=== PATIENT | female | born 1965 | race Caucasian/White ===

== ENCOUNTER 2017-06-02 12:18 | Emergency (ER) | payer MEDICAID ==
[2017-06-02 12:28] VITALS: TEMP 97.8
[2017-06-02] MEDS ORDERED: guaiFENesin 100 mg/5 ml Syrup UD PO STA (12:49)
[2017-06-02] MEDS ORDERED: guaiFENesin 100 mg/5 ml Syrup UD ONE (12:54)
[2017-06-02 13:05] VITALS: BP 132/74; PULSE 60; RESP 20; O2SAT 96
--- NOTE | 2017-06-02 13:07 | C.PDOC ---
History Of Present Illness Patient is a 51 y/o female who presents to the ED with complaints of cough, cold , SOB x 4 days and dizziness x2 days. Patient was prescribed a Zpack by Dr. Shannon but did not take any OTC flu/cold medicine. Denies fever or chills. Patient does not have any sick contact at home and has no other complaints at this time. Time Seen by Provider: 06/02/17 12:43 Chief Complaint (Nursing): Dizziness/Lightheaded History Per: Patient History/Exam Limitations: no limitations Onset/Duration Of Symptoms: Days Current Symptoms Are (Timing): Still Present Associated Symptoms: Cough (dry, nonproductive. ). denies: Fever, Chills Past Medical History Reviewed: Historical Data, Nursing Documentation, Vital Signs Vital Signs: Last Vital Signs Temp 97.8 F 06/02/17 12:25 Pulse 60 06/02/17 12:59 Resp 20 06/02/17 12:59 BP 132/74 06/02/17 12:59 Pulse Ox 96 06/02/17 13:07 - Medical History PMH: HTN, Hypothyroidism Surgical History: Cholecystectomy Family History: States: No Known Family Hx - Social History Hx Alcohol Use: No Hx Substance Use: No - Immunization History Hx Tetanus Toxoid Vaccination: No Hx Influenza Vaccination: No Hx Pneumococcal Vaccination: No Review Of Systems Constitutional: Negative for: Fever, Chills Cardiovascular: Negative for: Chest Pain Respiratory: Positive for: Cough, Other (congestion.). Negative for: Shortness of Breath Gastrointestinal: Negative for: Nausea, Vomiting Physical Exam - Physical Exam Appears: Well, Non-toxic, No Acute Distress Skin: Normal Color, Warm, Dry Head: Atraumatic, Normacephalic Nose: Other (nasal congestion.) Oral Mucosa: Moist Throat: Erythema (mild) Chest: Symmetrical Cardiovascular: Rhythm Regular, No Murmur Respiratory: Normal Breath Sounds, No Rales, No Rhonchi, No Wheezing Gastrointestinal/Abdominal: Soft, No Tenderness Neurological/Psych: Oriented x3, Normal Speech, Normal Cognition ED Course And Treatment O2 Sat by Pulse Oximetry: 96 (Room air) Pulse Ox Interpretation: Normal Medical Decision Making Medical Decision Making: Plan: Robitussin and Motrin administered. mild viral syndrome, non-prod cough, mild throat erythema, no d/c failed outpatient Azithromycin x 3 days No prior OTC flu/cold meds attempted Educated daytime/nighttime symptomatic relief. Disposition Doctor Will See Patient In The: Office Counseled Patient/Family Regarding: Studies Performed, Diagnosis - Disposition Referrals: Tanvi Parker MD [Staff Provider] - Disposition: HOME/ ROUTINE Disposition Time: 13:06 Condition: GOOD Additional Instructions: STOP Azithromycin- does not work for VIRAL bronchitis Dayquil and Nyquil as directed Drink plenty of fluids Avoid family contacts, this is very contagious in the home. Instructions: Viral Syndrome (ED) Forms: TCHO (Ivorian) - Clinical Impression Clinical Impression: Influenza-like illness - Scribe Statement The provider has reviewed the documentation as recorded by the Scribe Flor Rodriguez All medical record entries made by the Scribe were at my direction and personally dictated by me. I have reviewed the chart and agree that the record accurately reflects my personal performance of the history, physical exam, medical decision making, and the department course for this patient. I have also personally directed, reviewed, and agree with the discharge instructions and disposition.
== END 2017-06-02 13:56 | disposition home or self-care (01) ==
LOC: C.ER 12:18
DX: J11.1 Influenza due to unidentified influenza virus with other respiratory manifestations (principal)

== ENCOUNTER 2018-01-31 17:24 | Inpatient (IN) | payer MEDICAID ==
[2018-01-31] MEDS ORDERED: Aspirin 325 mg EC Tablets PO STA (17:46)
[2018-01-31] MEDS ORDERED: Aspirin 325 mg EC Tablets PO ONE (17:52)
[2018-01-31 18:03] LABS: BASO # 0.1 K/uL (0.0-0.2); BASO % 0.7 % (0.0-2.0); EOS # 0.5 K/uL (0.0-0.7); EOS % 6.5 % (0.0-4.0); HEMOGLOBIN 10.9 g/dL (11.0-16.0); LYMPH # 3.1 K/uL (1.0-4.3); LYMPH % 42.6 % (20.0-40.0); MEAN CELL VOLUME 79.7 fL (81.0-99.0); MEAN CORPUSCULAR HEMOGLOBIN 26.4 pg (27.0-31.0); MEAN CORPUSCULAR HGB CONC 33.1 g/dL (33.0-37.0); MEAN PLATELET VOLUME 8.9 fL (7.2-11.7); MONO # 0.5 K/uL (0.0-0.8); MONO % 6.4 % (0.0-10.0); NEUT # 3.2 K/uL (1.8-7.0); NEUT % 43.8 % (50.0-75.0); NRBC % 0.1 % (0.0-2.0); RBC 4.12 Mil/uL (3.80-5.20); RED CELL DISTRIBUTION WIDTH 15.5 % (11.5-14.5); WHITE BLOOD COUNT 7.2 K/uL (4.8-10.8)
--- NOTE | 2018-01-31 18:13 | RAD ---
PROCEDURE: CHEST RADIOGRAPH, 1 VIEW HISTORY: chest pain COMPARISON: None available. FINDINGS: LUNGS: Clear. PLEURA: No pneumothorax or pleural fluid seen. CARDIOVASCULAR: No radiographic findings to suggest acute or significant cardiovascular disease. OSSEOUS STRUCTURES: No significant abnormalities. VISUALIZED UPPER ABDOMEN: Normal. OTHER FINDINGS: None. IMPRESSION: No active disease.
[2018-01-31 18:17] LABS: ALB/GLOB RATIO 0.9 (1.0-2.1); ALT/SGPT 30 U/L (9-52); AST/SGOT 28 U/L (14-36); BLOOD UREA NITROGEN 13 mg/dL (7-17); CALCIUM 9.6 mg/dl (8.6-10.4); GFR AFRICAN-AMERICAN > 60; GFR NON-AFRICAN AMERICAN > 60
[2018-01-31 18:28] LABS: B-TYPE NATRIURETIC PEPTIDE 536 pg/mL (0-900)
--- NOTE | 2018-01-31 18:40 | C.PDOC ---
History Of Present Illness Pt c/o left sided chest pain radiating to LLE Time Seen by Provider: 01/31/18 17:43 Chief Complaint (Nursing): Chest Pain History Per: Patient Onset/Duration Of Symptoms: Hrs (since last night), Waxing/Waning Current Symptoms Are (Timing): Still Present Severity: Moderate Quality: "Pain" Associated Symptoms: Nausea Modifying Factors: Other Indicated Below Alleviating Factors: None Nitro Therapy Administered: 1, Per ED, Complete Relief Additional History Per: Prior Records Past Medical History Reviewed: Historical Data, Nursing Documentation, Vital Signs Vital Signs: Last Vital Signs Temp 98 F 01/31/18 17:28 Pulse 62 01/31/18 18:29 Resp 21 01/31/18 18:29 BP 136/79 01/31/18 18:29 Pulse Ox 96 01/31/18 18:44 - Medical History PMH: HTN, Hypothyroidism Surgical History: Cholecystectomy Family History: States: Unknown Family Hx - Social History Hx Tobacco Use: No Hx Alcohol Use: No Hx Substance Use: No - Immunization History Hx Tetanus Toxoid Vaccination: No Hx Influenza Vaccination: No Hx Pneumococcal Vaccination: No Review Of Systems Except As Marked, All Systems Reviewed And Found Negative. Constitutional: Negative for: Fever, Weakness Cardiovascular: Positive for: Chest Pain Respiratory: Negative for: Hemoptysis Gastrointestinal: Positive for: Nausea. Negative for: Vomiting, Abdominal Pain Skin: Negative for: Rash Neurological: Negative for: Weakness, Numbness Physical Exam - Physical Exam Appears: Non-toxic, No Acute Distress Skin: Normal Color, Warm, Dry, No Rash Head: Atraumatic, Normacephalic Eye(s): bilateral: PERRL, EOMI Neck: Normal ROM, Supple Cardiovascular: Rhythm Regular Respiratory: Normal Breath Sounds, No Accessory Muscle Use Gastrointestinal/Abdominal: Soft, No Tenderness Back: No CVA Tenderness Extremity: Normal ROM, No Calf Tenderness Neurological/Psych: Oriented x3, Normal Motor, Normal Sensation ED Course And Treatment - Laboratory Results Result Diagrams: 01/31/18 17:59 01/31/18 17:59 Lab Interpretation: No Acute Changes ECG: Interpreted By Me, Viewed By Me ECG Rhythm: Sinus Rhythm, L BBB, Nonspecific Changes ECG Interpretation: Abnormal Rate From EC O2 Sat by Pulse Oximetry: 96 Pulse Ox Interpretation: Normal - Radiology CXR: Viewed By Me, Read By Radiologist CXR Interpretation: Yes: No Acute Disease Progress - Interventions Interventions:: Observation, Oxygen - Medications Administered Oral: Aspirin - Data Reviewed Data Reviewed: Lab, Diagnostic imaging, EKG, Old records - Patient Status Patient status: Mostly improved - Critical Care Citical Care: Excluding Proc Time Critical Care Time: 45 minutes - Continuity of Care Discussed patient case with:: Patient, ED Nurse, Covering for PMD Disposition Discussed With : Kulwant Mims Comment: He accepted pt on his service. Doctor Will See Patient In The: Hospital Counseled Patient/Family Regarding: Studies Performed, Diagnosis - Disposition Disposition: HOSPITALIZED Disposition Time: 19:17 Condition: FAIR - Clinical Impression Clinical Impression: Chest pain
[2018-01-31 20:22] LABS: INR 1.1
[2018-02-01 00:55] LABS: CK-MB 1.64 ng/mL (0.0-3.38)
[2018-02-01] MEDS: Levothyroxine 75 MCG TAB PO SCH (05:52)
--- NOTE | 2018-02-01 05:55 | CP.PCM.HP ---
History of Present Illness - History of Present Illness History of Present Illness: CC: chest pain HPI: 52 year old female with PMH significat for HTN, Hypothyroidism came in for c/o ches pain radiating to left side Present on Admission - Present on Admission Any Indicators Present on Admission: No Past Patient History - Infectious Disease Hx of Infectious Diseases: None - Past Social History Smoking Status: Never Smoked - CARDIAC Hx Hypertension: Yes - ENDOCRINE/METABOLIC Hx Hypothyroidism: Yes - PSYCHIATRIC Hx Substance Use: No - SURGICAL HISTORY Hx Cholecystectomy: Yes - ANESTHESIA Hx Anesthesia: Yes Hx Anesthesia Reactions: No Hx Malignant Hyperthermia: No Meds Allergies/Adverse Reactions: Allergies Allergy/AdvReac Type Severity Reaction Status Date / Time No Known Allergies Allergy Verified 01/31/18 17:45 Results - Vital Signs Recent Vital Signs: Last Vital Signs Temp 97.5 F L 02/01/18 04:53 Pulse 58 L 02/01/18 04:53 Resp 18 02/01/18 04:53 BP 145/87 02/01/18 04:53 Pulse Ox 98 02/01/18 04:53 - Labs Result Diagrams: 01/31/18 17:59 01/31/18 17:59 Labs: Laboratory Results - last 24 hr 01/31/18 01/31/18 01/31/18 17:59 17:59 17:59 WBC 7.2 RBC 4.12 Hgb 10.9 L Hct 32.9 L MCV 79.7 L MCH 26.4 L MCHC 33.1 RDW 15.5 H Plt Count 265 MPV 8.9 Neut % (Auto) 43.8 L Lymph % (Auto) 42.6 H Meigs % (Auto) 6.4 Eos % (Auto) 6.5 H Baso % (Auto) 0.7 Neut # (Auto) 3.2 Lymph # (Auto) 3.1 Meigs # (Auto) 0.5 Eos # (Auto) 0.5 Baso # (Auto) 0.1 PT 12.0 INR 1.1 APTT 33 Sodium 140 Potassium 4.0 Chloride 104 Carbon Dioxide 25 Anion Gap 14 BUN 13 Creatinine 0.6 L Est GFR ( Amer) > 60 Est GFR (Non-Af Amer) > 60 Random Glucose 96 Calcium 9.6 Total Bilirubin 0.6 AST 28 ALT 30 Alkaline Phosphatase 78 Total Creatine Kinase CK-MB (Mass) Troponin I < 0.0120 NT-Pro-B Natriuret Pep 536 Total Protein 8.5 H Albumin 4.0 Globulin 4.5 H Albumin/Globulin Ratio 0.9 L 02/01/18 00:23 WBC RBC Hgb Hct MCV MCH MCHC RDW Plt Count MPV Neut % (Auto) Lymph % (Auto) Meigs % (Auto) Eos % (Auto) Baso % (Auto) Neut # (Auto) Lymph # (Auto) Meigs # (Auto) Eos # (Auto) Baso # (Auto) PT INR APTT Sodium Potassium Chloride Carbon Dioxide Anion Gap BUN Creatinine Est GFR ( Amer) Est GFR (Non-Af Amer) Random Glucose Calcium Total Bilirubin AST ALT Alkaline Phosphatase Total Creatine Kinase 179 H CK-MB (Mass) 1.64 Troponin I < 0.0120 NT-Pro-B Natriuret Pep Total Protein Albumin Globulin Albumin/Globulin Ratio
[2018-02-01 08:35] VITALS: RESP 20
[2018-02-01] MEDS: Enoxaparin 40 mg Syringe SC SCH (09:28)
[2018-02-01] MEDS ORDERED: Levothyroxine 75 MCG TAB PO SCH (10:00)
--- NOTE | 2018-02-01 12:09 | CARD ---
APPROVED REPORT EXAM: Two-dimensional and M-mode echocardiogram with Doppler and color Doppler. Other Information Quality : GoodRhythm : INDICATION Chest Pain 2D DIMENSIONS IVSd1.3 (0.7-1.1cm)LVDd4.7 (3.9-5.9cm) PWd1.3 (0.7-1.1cm)LVDs3.4 (2.5-4.0cm) FS (%) 26.8 %LVEF (%)52.3 (>50%) M-Mode DIMENSIONS Left Atrium (MM)4.30 (2.5-4.0cm)Aortic Root3.55 (2.2-3.7cm) Aortic Cusp Exc.1.84 (1.5-2.0cm) Mitral Valve MV E Qipwtofe18.9cm/sMV A Rxwdsytr28.0cm/sMV [id number] E/A ratio0.8MVA (PHT)2.14cm2 TDI E/Lateral E'0.0E/Medial E'0.0 Tricuspid Valve TR Peak Cugvirqo843jd/sTR Peak Gr.[id number] LEFT VENTRICLE The left ventricle is normal size. There is borderline concentric left ventricular hypertrophy. The left ventricular systolic function is normal. The left ventricular ejection fraction is within the normal range. There is normal LV segmental wall motion. Transmitral Doppler flow pattern is Grade I-abnormal relaxation pattern. Normal left atrial pressure. RIGHT VENTRICLE The right ventricle is normal size. The right ventricular systolic function is normal. ATRIA The left atrium is mildly to moderately dilated. Atrial index not available The right atrium size is normal. AORTIC VALVE The aortic valve is normal in structure. No aortic regurgitation is present. There is no aortic valvular stenosis. MITRAL VALVE The mitral valve is normal in structure. Mild mitral regurgitation. TRICUSPID VALVE The tricuspid valve is normal in structure. There is trace to mild tricuspid regurgitation. Right ventricular systolic pressure is estimated at less than 30 mmHg. PULMONIC VALVE The pulmonary valve is normal in structure. GREAT VESSELS The aortic root is normal in size. The IVC is normal in size and collapses >50% with inspiration. PERICARDIAL EFFUSION There is no pericardial effusion. <Conclusion> There is borderline concentric left ventricular hypertrophy. The left ventricular systolic function is normal. There is no gross LV segmental wall motion abnormality. Transmitral Doppler flow pattern is Grade I-abnormal relaxation pattern. Normal left atrial pressure. The right ventricular systolic function is normal. The left atrium is mildly to moderately dilated. Atrial index not available. Mild mitral regurgitation. There is no pericardial effusion.
[2018-02-01 12:30] LABS: CK-MB 1.46 ng/mL (0.0-3.38)
--- NOTE | 2018-02-01 19:17 | PN ---
DATE: REASON FOR CONSULTATION: Chest pain. HISTORY: The patient is a 52-year-old female originally from [place] who has a history of hypertension. No known prior cardiac history other than hypertension, presented because of chest pain. The patient stated that after she had finished a day of fasting of the holy month of and at breakfast time she started experiencing chest discomfort and palpitation. The patient denies any associated diaphoresis, dizziness, or syncope. The patient did report nausea. SOCIAL HISTORY: The patient is a nonsmoker, nondrinker. PAST MEDICAL HISTORY: History of hypertension. The patient did undergo exercise stress test at [employer] office in area which was reported to be negative last year. MEDICATIONS: The patient is currently on Crestor 10 mg once a day, aspirin 81 mg once a day, Lopressor 50 mg twice a day, Lovenox 40 mg subcutaneous once a day, Synthroid 75 mcg once a day. PHYSICAL EXAMINATION: GENERAL: The patient is a middle-aged female who does not appear to be in any distress. VITAL SIGNS: Blood pressure 131/87, heart rate 62, temperature 97.9, respirations 20. HEENT: Normocephalic. CHEST: Clear. HEART: S1 and S2 regular. ABDOMEN: Soft. EXTREMITIES: No edema. LABORATORY DATA: SMA-7 is within normal limits except for creatinine of . Four sets of troponins are negative. PT, INR, and PTT are within normal limits. Hemoglobin and hematocrit 10.9 and 32.9. White count and platelet count are within normal limit. EKG revealed sinus rhythm with left atrial enlargement. Left bundle branch block. Echocardiogram study revealed borderline concentric LVH with normal systolic function and normal segmental wall motion. Grade I abnormal relaxation pattern. ASSESSMENT: 1. Chest pain. Myocardial infarction is ruled out. 2. Left bundle branch block, rule out underlying coronary artery disease. 3. Hypertension. RECOMMENDATIONS: Continue current aspirin, Lopressor, subcutaneous Lovenox, and Crestor. Her daughter was asked to bring the most recent stress test report, however, in view of left bundle branch block which is not clear if a new finding or an old one. A cardiac catheterization should be considered. Real Hannallah, MD
[2018-02-02] MEDS: Levothyroxine 75 MCG TAB PO SCH (05:50)
[2018-02-02] MEDS: Enoxaparin 40 mg Syringe SC SCH (10:30)
[2018-02-02] MEDS ORDERED: Pneumococcal 23-Valent Vaccine IM ONE (14:00)
--- NOTE | 2018-02-02 18:11 | PN ---
DATE: 02/02/2018 SUBJECTIVE: The patient denies chest pain. PHYSICAL EXAMINATION: VITAL SIGNS: Blood pressure 141/84, heart rate 64, temperature 98, respirations 20. HEENT: Normocephalic. CHEST: Clear. HEART: S1 and S2, regular. EXTREMITIES: No edema. ASSESSMENT: 1. Chest pain. Myocardial infarction is ruled out. 2. Left bundle branch block. 3. Hypertension. RECOMMENDATIONS: Continue aspirin 81 mg once a day, Lovenox 40 mg subcutaneous once a day, Crestor 10 mg once a day, Synthroid 75 mcg once a day. Lopressor was discontinued because of earlier mild sinus bradycardia. The patient will undergo cardiac catheterization hopefully tomorrow if the laboratory technician schedule allows. She would be kept n.p.o. after breakfast. Case was discussed with the patient and her son at the bedside as well as the primary referring physician, Dr. Kulwant Mims. Real Mckeon MD
--- NOTE | 2018-02-02 22:27 | CP.PCM.PN ---
Subjective - Date & Time of Evaluation Date of Evaluation: 02/02/18 Time of Evaluation: 19:00 - Subjective Subjective: Pt seen and examined at bedside Objective - Vital Signs/Intake and Output Vital Signs (last 24 hours): Temp Pulse Resp BP Pulse Ox 98 F 59 L 20 154/90 H 98 02/02/18 15:44 02/02/18 16:00 02/02/18 15:44 02/02/18 15:44 02/02/18 15:44 - Medications Medications: Current Medications Aspirin (Ecotrin) 81 mg PO DAILY [facility] Last Admin: 02/02/18 10:30 Dose: 81 mg Enoxaparin Sodium (Lovenox) 40 mg SC DAILY [facility] Last Admin: 02/02/18 10:30 Dose: 40 mg Levothyroxine Sodium (Synthroid) 75 mcg PO DAILY@0630 [facility] Last Admin: 02/02/18 05:50 Dose: 75 mcg Rosuvastatin Calcium (Crestor) 10 mg PO HS [facility] Last Admin: 02/02/18 21:25 Dose: 10 mg - Labs Labs: 01/31/18 17:59 01/31/18 17:59 PT 12.0 SECONDS (9.7-12.2) 01/31/18 17:59 INR 1.1 01/31/18 17:59 APTT 33 SECONDS (21-34) 01/31/18 17:59
[2018-02-03] MEDS: Levothyroxine 75 MCG TAB PO SCH (06:42)
[2018-02-03 07:46] VITALS: TEMP 97.5; O2SAT 96
[2018-02-03] MEDS: Enoxaparin 40 mg Syringe SC SCH (10:01)
[2018-02-03 15:58] VITALS: PULSE 77
--- NOTE | 2018-02-03 16:47 | PN ---
DATE: 02/03/2018 SUBJECTIVE: The patient denies any chest pain or shortness of breath. PHYSICAL EXAMINATION: VITAL SIGNS: Blood pressure 153/98, heart rate 78, temperature 97.5, respirations 20. Cardiac catheterization which I hoped to be done today, could not be performed because of the full schedule in the cardiac hemodialysis lab technician that was already booked before the weekend and the patient was scheduled for 11'o clock for tomorrow. The case was discussed with the primary physician with the patient and her family members at the bedside. The patient would be maintained on aspirin, subcutaneous Lovenox, Crestor, and Synthroid as the patient elects to wait for tomorrow. The procedure will be done tomorrow. Otherwise, if the patient elects for discharge, I recommend that she signs against medical advice with the intent to come back tomorrow for outpatient cardiac catheterization. Real Mckeon MD
[2018-02-03 17:12] VITALS: BP 147/90
--- NOTE | 2018-02-03 17:14 | CP.PCM.PN ---
Subjective - Date & Time of Evaluation Date of Evaluation: 02/03/18 Time of Evaluation: 04:00 - Subjective Subjective: House resident paged because the patient wanted to sign out AMA. Nursing notified Dr. Mims. The patient was admitted for chest pain and was scheduled to have a cardiac cath tomorrow. The patient and her daughter stated they wanted second opinions before having that procedure done. The patient was made aware of the risks of leaving the hospital against medical advice and signed the form. She was awake, alert and oriented. She was told to follow up with her primary care doctor. The patient's daughter was requesting scripts for pain medications for her mother, but it was explained to her that we would not be providing pain meds. Lucy Chavarria DO PGY 2 Objective - Vital Signs/Intake and Output Vital Signs (last 24 hours): Temp Pulse Resp BP Pulse Ox 97.5 F L 77 20 153/98 H 96 02/03/18 07:45 02/03/18 15:52 02/03/18 07:45 02/03/18 07:45 02/03/18 07:45 Intake and Output: 02/03/18 02/03/18 06:59 18:59 Intake Total 240 Balance 240 - Medications Medications: Current Medications Aspirin (Ecotrin) 81 mg PO DAILY [facility] Last Admin: 02/03/18 11:11 Dose: 81 mg Enoxaparin Sodium (Lovenox) 40 mg SC DAILY [facility] Last Admin: 02/03/18 10:01 Dose: 40 mg Levothyroxine Sodium (Synthroid) 75 mcg PO DAILY@0630 [facility] Last Admin: 02/03/18 06:42 Dose: 75 mcg Rosuvastatin Calcium (Crestor) 10 mg PO HS [facility] Last Admin: 02/02/18 21:25 Dose: 10 mg - Labs Labs: 01/31/18 17:59 01/31/18 17:59 PT 12.0 SECONDS (9.7-12.2) 01/31/18 17:59 INR 1.1 01/31/18 17:59 APTT 33 SECONDS (21-34) 01/31/18 17:59
--- NOTE | 2018-02-04 08:21 | CP.PCM.DIS ---
Provider - Provider Date of Admission: 02/02/18 10:41 Attending physician: Kulwant Mims MD Time Spent in preparation of Discharge (in minutes): 45 Hospital Course - Lab Results Lab Results: Most Recent Lab Values WBC 7.2 K/uL (4.8-10.8) 01/31/18 17:59 RBC 4.12 Mil/uL (3.80-5.20) 01/31/18 17:59 Hgb 10.9 g/dL (11.0-16.0) L 01/31/18 17:59 Hct 32.9 % (34.0-47.0) L 01/31/18 17:59 MCV 79.7 fL (81.0-99.0) L 01/31/18 17:59 MCH 26.4 pg (27.0-31.0) L 01/31/18 17:59 MCHC 33.1 g/dL (33.0-37.0) 01/31/18 17:59 RDW 15.5 % (11.5-14.5) H 01/31/18 17:59 Plt Count 265 K/uL (130-400) 01/31/18 17:59 MPV 8.9 fL (7.2-11.7) 01/31/18 17:59 Neut % (Auto) 43.8 % (50.0-75.0) L 01/31/18 17:59 Lymph % (Auto) 42.6 % (20.0-40.0) H 01/31/18 17:59 Piatt % (Auto) 6.4 % (0.0-10.0) 01/31/18 17:59 Eos % (Auto) 6.5 % (0.0-4.0) H 01/31/18 17:59 Baso % (Auto) 0.7 % (0.0-2.0) 01/31/18 17:59 Neut # (Auto) 3.2 K/uL (1.8-7.0) 18 17:59 Lymph # (Auto) 3.1 K/uL (1.0-4.3) 01/31/18 17:59 Piatt # (Auto) 0.5 K/uL (0.0-0.8) 01/31/18 17:59 Eos # (Auto) 0.5 K/uL (0.0-0.7) 01/31/18 17:59 Baso # (Auto) 0.1 K/uL (0.0-0.2) 01/31/18 17:59 PT 12.0 SECONDS (9.7-12.2) 01/31/18 17:59 INR 1.1 01/31/18 17:59 APTT 33 SECONDS (21-34) 01/31/18 17:59 D-Dimer, Quantitative < 200.0 ng/mlDDU (0-243) 02/01/18 16:26 Sodium 140 mmol/L (132-148) 01/31/18 17:59 Potassium 4.0 mmol/L (3.6-5.2) 01/31/18 17:59 Chloride 104 mmol/L (98-107) 01/31/18 17:59 Carbon Dioxide 25 mmol/L (22-30) 01/31/18 17:59 Anion Gap 14 (10-20) 01/31/18 17:59 BUN 13 mg/dL (7-17) 01/31/18 17:59 Creatinine 0.6 mg/dL (0.7-1.2) L 01/31/18 17:59 Est GFR ( Amer) > 60 01/31/18 17:59 Est GFR (Non-Af Amer) > 60 01/31/18 17:59 POC Glucose (mg/dL) 119 mg/dL (65-110) H 02/03/18 16:21 Random Glucose 96 mg/dL (65-105) 01/31/18 17:59 Calcium 9.6 mg/dl (8.6-10.4) 01/31/18 17:59 Total Bilirubin 0.6 mg/dL (0.2-1.3) 01/31/18 17:59 AST 28 U/L (14-36) 01/31/18 17:59 ALT 30 U/L (9-52) 01/31/18 17:59 Alkaline Phosphatase 78 U/L (38-126) 01/31/18 17:59 Total Creatine Kinase 147 U/L (30-135) H 02/01/18 12:02 CK-MB (Mass) 1.46 ng/mL (0.0-3.38) 02/01/18 12:02 Troponin I < 0.0120 ng/mL (0.00-0.120) 02/01/18 12:02 NT-Pro-B Natriuret Pep 536 pg/mL (0-900) 01/31/18 17:59 Total Protein 8.5 g/dL (6.3-8.3) H 01/31/18 17:59 Albumin 4.0 g/dL (3.5-5.0) 01/31/18 17:59 Globulin 4.5 gm/dL (2.2-3.9) H 01/31/18 17:59 Albumin/Globulin Ratio 0.9 (1.0-2.1) L 01/31/18 17:59 Urine HCG, Qual Negative (NEGATIVE) 02/03/18 07:58 - Hospital Course Hospital Course: patient wanted to sign out AMA. Nursing notified me. The patient was admitted for chest pain and was scheduled to have a cardiac cath tomorrow. The patient and her daughter stated they wanted second opinions before having that procedure done. The patient was made aware of the risks of leaving the hospital against medical advice and signed the form. She was awake, alert and oriented. She was told to follow up with her primary care doctor. The patient's daughter was requesting scripts for pain medications for her mother, but it was explained to her that we would not be providing pain meds. Discharge Plan - Follow Up Plan Condition: FAIR Disposition: HOME/ ROUTINE Instructions: Heart Healthy Diet, Chest Pain (DC) Additional Instructions: Follow up with your primary medical doctor in one week Referrals: Kulwant Mims MD [Staff Provider] -
--- NOTE | 2018-02-04 15:54 | CARD ---
APPROVED REPORT EKG Measurement Heart [id number] <Conclusion> Normal sinus rhythm Possible Left atrial enlargement Left bundle branch block Abnormal ECG
== END 2018-02-03 19:10 | disposition home or self-care (01) | DRG 143 ==
LOC: C.ER 17:24 → C.9E 19:17 → C.6T 19:17 → OBSVTOIN 02-02 10:41 → C.6T 02-02 20:41
PROVIDERS: ADMIT Internal Medicine; ATTEND Internal Medicine
DX: R07.89 Other chest pain (principal); I44.7 Left bundle-branch block, unspecified; I10 Essential (primary) hypertension; E03.9 Hypothyroidism, unspecified; Z90.49 Acquired absence of other specified parts of digestive tract